=== PATIENT | female | born 1995 | race Caucasian/White ===

== ENCOUNTER 2018-04-23 01:51 | Emergency (ER) | payer MEDICAID ==
[~2018-04-23] VITALS: Ht 160 cm; Wt 50.0 kg
[2018-04-23 02:34] LABS: BASOPHILS % (AUTO) 0.4 % (0-1); EOSINOPHILS % (AUTO) 0.7 % (0-6); HEMATOCRIT 36.1 % (35.0-45.0); HEMOGLOBIN 11.8 g/dl (12.0-16.0); LYMPHOCYTES # (AUTO) 1.7 X10'3 (1.1-4.8); LYMPHOCYTES % (AUTO) 28.9 % (21-51); MEAN CORPUSCULAR HEMOGLOBIN 27.3 PG (27.0-31.0); MEAN CORPUSCULAR HGB CONC 32.8 % (33.0-36.5); MEAN CORPUSCULAR VOLUME 83.2 FL (78-98); MEAN PLATELET VOLUME 8.5 FL (7.4-10.4); MONOCYTES # (AUTO) 0.5 X10'3 (0-0.9); MONOCYTES % (AUTO) 8.6 % (2-12); NEUTROPHILS # (AUTO) 3.6 X10'3 (1.8-7.7); NEUTROPHILS % (AUTO) 61.4 % (42-75); PLATELET COUNT 358 X10'3 (140-440); RED BLOOD COUNT 4.34 X10'6 (4.20-5.60); RED CELL DISTRIBUTION WIDTH 13.5 % (11.5-14.5); WHITE BLOOD COUNT 5.8 X10'3 (4.5-11.0)
[2018-04-23 02:43] LABS: ANION GAP 13 (8-16); BILIRUBIN,TOTAL 0.2 MG/DL (0.1-1.0); BLOOD UREA NITROGEN 10 MG/DL (7-18); BUN/CREATININE RATIO 12.5 (6.6-38.0); CALCIUM 8.5 MG/DL (8.5-10.1); CHLORIDE 105 MMOL/L (99-107); GLUCOSE 102 MG/DL (70-104); POTASSIUM 3.5 MMOL/L (3.5-5.1); SODIUM 143 MMOL/L (135-145); TOTAL CARBON DIOXIDE 25.3 MMOL/L (24-32); TOTAL PROTEIN 7.9 G/DL (6.4-8.2); eGFR 88 ML/MIN
[2018-04-23 02:44] LABS: ALANINE AMINOTRANSFERASE 59 U/L (12-78); ALBUMIN/GLOBULIN RATIO 0.3 (1.1-1.5); ALKALINE PHOSPHATASE 49 IU/L (46-116); ASPARTATE AMINO TRANSFERASE 26 U/L (10-37)
[2018-04-23 02:55] LABS: ETHANOL 0.159 GM/DL (0.0-0.010)
[2018-04-23 03:00] LABS: ACETAMINOPHEN < 2.0 UG/ML (10-30)
--- NOTE | 2018-04-23 03:20 | NUR ---
Spoke ER MD Baeza no need to consult poison consult R/T to briseida cooper mir of toxic ingestion.
--- NOTE | 2018-04-23 05:03 | NUR ---
Called to SOC to initiate SOC consult.
--- NOTE | 2018-04-23 05:43 | NUR ---
Call back from SOC. Stated patient should be placed on inpatient psych and continue exisiting medication with the exception of ativan.
[2018-04-23] MEDS ORDERED: ESCI5TAB PO (08:17)
[2018-04-23] MEDS ORDERED: ARIP2TAB37 PO (08:17)
--- NOTE | 2018-04-23 08:48 | NUR ---
[facility] CALLED REQUESTING OTHER HALF OF TOX SCREEN. [facility] INFORMED IT IS STILL PENDING.
[2018-04-23 08:55] LABS: URINE HCG NEGATIVE (NEG)
[2018-04-23 09:01] LABS: URINE AMPHETAMINE SCREEN NEGATIVE (Neg); URINE BARBITUATE SCREEN NEGATIVE (Neg); URINE BENZODIAZEPINES SCREEN NEGATIVE (Neg); URINE CANNABINOID SCREEN NEGATIVE (Neg); URINE COCAINE SCREEN NEGATIVE (Neg); URINE METHADONE SCREEN NEGATIVE (Neg); URINE OPIATE SCREEN NEGATIVE (Neg); URINE PHENCYCLIDINE SCREEN NEGATIVE (Neg)
[2018-04-23] MEDS ORDERED: nicotine 21mg patch - 24 hr TD ONE (09:05)
--- NOTE | 2018-04-23 09:10 | NUR ---
parents arrived, visiting with patient in room.
[2018-04-23] MEDS ORDERED: CITALOpram 10mg tablet PO ONE (09:30)
--- NOTE | 2018-04-23 12:16 | NUR ---
called report to rené in overflow and patient being moved
--- NOTE | 2018-04-23 13:02 | NUR ---
Patient sitting in bed eating, shes wrapped in blankets, a man and women visitor at bedside.
--- NOTE | 2018-04-23 13:44 | NUR ---
Patient mother with patient, curious to when Behavioral Health will eval patient.
[2018-04-23] MEDS ORDERED: ibuprofen 200mg tablet PO ONE (14:10)
--- NOTE | 2018-04-23 17:06 | NUR ---
Patient complaining of headache, and neck ache, stated "she fell down a flight of stairs" is aware.
--- NOTE | 2018-04-23 19:31 | NUR ---
Patient is mid Fowlers in bed. Oriented X4, warm and dry, she has good color. Patient states she overdosed on ativan after going on a drinking binge. "I meant to take one ativan but the bottle poured them all out in my hand, so I said fuck it, I took them all." At this time this patient denies S/I or H/I. She denies hallucinations. Patient ate a full meal. Patient states she has an IUD implanted, she also uses a Xulan patch but this is the off week. Patient states a Bipolar and depression history along with a post depression history. She has partial custody of a 4 1/2 year old boy. Q15 minute rounding will be continued for patient safety
--- NOTE | 2018-04-23 22:01 | NUR ---
This patient has been interviewed by the Behavioral Health tapper shank for probable admit to their unit. The plan is to move here later this evening. At this time patient is mid Fowlers in bed and sleeping.
--- NOTE | 2018-04-23 22:58 | NUR ---
Patient was asleep until 2240 hrs. I awoke this patient to advised her of her transfer upstairs to the Behavioral Health Unit. Patient transfered by wheelchair with tech. Paperwork sent with stickers from admitting and wrist band too. 5150 original paperwork was sent too.
[2018-04-23 23:01] VITALS: BP 83/53
[2018-04-24] MEDS ORDERED: CITALOpram 10mg tablet PO SCH (08:00)
[2018-04-27] MEDS ORDERED: PROP10TA10 PO (15:22)
[2018-04-27] MEDS ORDERED: CITA20TA19 PO (15:22)
[2018-04-27] MEDS ORDERED: NICO-687 TD (15:22)
[2018-04-27] MEDS ORDERED: NALT50TA PO (15:22)
== END 2018-04-23 23:06 ==
LOC: ER 01:51
DX: R45.851 Suicidal ideations (principal); F31.9 Bipolar disorder, unspecified; F17.200 Nicotine dependence, unspecified, uncomplicated; F12.90 Cannabis use, unspecified, uncomplicated; Z88.1 Allergy status to other antibiotic agents
CPT/HCPCS: 36415; 70450; 72125; 80053; 80305; 80320; 80329; 81025; 84443; 85025; 99285

== ENCOUNTER 2018-04-23 18:30 | Inpatient (IN) | payer MEDICAID | END 2018-04-27 19:00 | disposition home or self-care (01) | LOC: ED HOLD 18:30 → ADULT MH 22:05 | DX: R45.851 Suicidal ideations (principal) ==

== ENCOUNTER 2020-03-30 14:16 | Emergency (ER) | payer MEDICAID ==
[~2020-03-30] VITALS: Ht 160 cm; Wt 52.3 kg
[~2020-03-30 14:16] MED LIST: ARIP2TAB37 PO; CITA20TA19 PO; NALT50TA PO; NICO-687 TD; PROP10TA10 PO
[2020-03-30 15:09] LABS: CLARITY,URINE SLIGHTLY CLOUDY (Clear); COLOR,URINE YELLOW (Yellow); GLUCOSE, URINE NEGATIVE (Neg); KETONES,URINE NEGATIVE (Neg); LEUKOCYTE ESTERASE ,URINE TRACE (Neg); NITRITES, URINE NEGATIVE (Neg); OCCULT BLOOD,URINE NEGATIVE (Neg); PROTEIN,URINE NEGATIVE (Neg)
[2020-03-30 15:22] LABS: UA COLLECTION TYPE CLN CATCH MIDSTREAM
[2020-03-30 15:23] LABS: BACTERIA,URINE FEW /HPF (Neg); MUCUS STRANDS MANY /LPF (Neg); RBC,URINE NONE SEEN /HPF (0-2); SQUAMOUS EPITHELIAL CELL,UR MODERATE /LPF (FEW); WBC,URINE 0-4 /HPF (0-4)
[2020-03-30 15:24] LABS: URINE AMPHETAMINE SCREEN NEGATIVE (Neg); URINE BARBITUATE SCREEN NEGATIVE (Neg); URINE BENZODIAZEPINES SCREEN NEGATIVE (Neg); URINE CANNABINOID SCREEN NEGATIVE (Neg); URINE COCAINE SCREEN NEGATIVE (Neg); URINE METHADONE SCREEN NEGATIVE (Neg); URINE OPIATE SCREEN NEGATIVE (Neg); URINE PHENCYCLIDINE SCREEN NEGATIVE (Neg)
[2020-03-30 15:27] LABS: URINE HCG NEGATIVE (NEG)
[2020-03-30 15:38] LABS: BASOPHILS % (AUTO) 0.3 % (0-1); EOSINOPHILS % (AUTO) 0.2 % (0-6); HEMATOCRIT 37.1 % (35.0-45.0); HEMOGLOBIN 12.8 g/dl (12.0-16.0); LYMPHOCYTES # (AUTO) 0.9 X10'3 (1.1-4.8); LYMPHOCYTES % (AUTO) 14.5 % (21-51); MEAN CORPUSCULAR HEMOGLOBIN 31.7 PG (27.0-31.0); MEAN CORPUSCULAR HGB CONC 34.6 g/dL (33.0-36.5); MEAN CORPUSCULAR VOLUME 91.7 FL (78-98); MEAN PLATELET VOLUME 8.1 FL (7.4-10.4); MONOCYTES # (AUTO) 0.4 X10'3 (0-0.9); MONOCYTES % (AUTO) 6.6 % (2-12); NEUTROPHILS # (AUTO) 4.7 X10'3 (1.8-7.7); NEUTROPHILS % (AUTO) 78.4 % (42-75); PLATELET COUNT 258 X10'3 (140-440); RED BLOOD COUNT 4.04 X10'6 (4.20-5.60); RED CELL DISTRIBUTION WIDTH 13.7 % (11.5-14.5)
[2020-03-30 15:56] LABS: ALANINE AMINOTRANSFERASE 18 U/L (12-78); ALBUMIN/GLOBULIN RATIO 1.1 (1.1-1.5); ALKALINE PHOSPHATASE 74 IU/L (46-116); ANION GAP 9 (8-16); ASPARTATE AMINO TRANSFERASE 18 U/L (10-37); BILIRUBIN,TOTAL 0.6 MG/DL (0.1-1.0); BLOOD UREA NITROGEN 11 MG/DL (7-18); BUN/CREATININE RATIO 14.7 (6.6-38.0); CHLORIDE 104 MMOL/L (99-107); CREATININE 0.75 MG/DL (0.40-0.90); GLUCOSE 115 MG/DL (70-104); POTASSIUM 3.5 MMOL/L (3.5-5.1); SODIUM 141 MMOL/L (135-145); TOTAL CARBON DIOXIDE 28.5 MMOL/L (24-32); TOTAL PROTEIN 7.8 G/DL (6.4-8.2); eGFR > 90 ML/MIN
[2020-03-30 16:08] LABS: ETHANOL < 0.010 GM/DL (0.0-0.010)
--- NOTE | 2020-03-30 17:10 | NUR ---
packet faxed to [facility]
--- NOTE | 2020-03-30 18:15 | NUR ---
PATIENT HAS BEEN DRINKING HEAVILY IN THE PAST WEEK AND A HALF SINCE HER BOYFRIEND BROKE UP WITH HER: 12 PACK OF BEER DAILY SHE LIVES WITH HER FATHER AND HER 6 YO SON
--- NOTE | 2020-03-30 19:02 | NUR ---
HAZEL GABRIEL TO TAKE PATIENT'S HOME MEDICATIONS TO PHARMACY
--- NOTE | 2020-03-30 19:17 | NUR ---
pt packet faxed to [facility]
[2020-03-30] MEDS ORDERED: [UNRECOGNIZED DRUG - CODE] PO (19:57)
[2020-03-30] MEDS ORDERED: SERT50TA10 PO (19:57)
[2020-03-30] MEDS ORDERED: HYDR50TA65 PO (19:57)
[2020-03-30] MEDS ORDERED: PRAZ1CAP5 PO (19:57)
[2020-03-30] MEDS ORDERED: LORA2TAB96 PO (19:57)
[2020-03-30] MEDS ORDERED: ONDA-103 PO (19:57)
[2020-03-30] MEDS ORDERED: simethicone 80mg chew tab PO PRN (20:15)
[2020-03-30] MEDS ORDERED: ondansetron 4mg rapidly disintigrating tab PO PRN (20:15)
--- NOTE | 2020-03-30 20:41 | NUR ---
JCARLOSH HERE AND UPDATYED TO WRITE 0630 MH HOLD
[2020-03-30] MEDS ORDERED: hydrOXYzine 25 MG tablet PO SCH (21:00)
[2020-03-30] MEDS ORDERED: sertraline 50mg tablet PO SCH (21:00)
[2020-03-30] MEDS ORDERED: prazosin 1mg capsule PO SCH (21:00)
--- NOTE | 2020-03-30 21:40 | NUR ---
AWAKE READING A BOOK, TEARY EYED. DID NOT WANT TO FURTHER TALK ABOUT HER FEELINGS SHE STATED
--- NOTE | 2020-03-30 23:40 | NUR ---
EYES CLOSED RESTING ON LEFT SIDE, NO SIGNS OF DISTRESS.
--- NOTE | 2020-03-31 00:49 | NUR ---
SLEEPING ON RIGHT SIDE NO SIGNS OF DISTRESS
--- NOTE | 2020-03-31 01:50 | NUR ---
LYING SUPIN, EYES CLOSED EVEN UNLABORED RESPIRATIONS.
--- NOTE | 2020-03-31 02:50 | NUR ---
no signs of distress, eyes closed.
--- NOTE | 2020-03-31 03:55 | NUR ---
sleeping facial muslces relaxed no sign of distress. Respirations even and unlabored
--- NOTE | 2020-03-31 05:37 | NUR ---
uneventful night. VSS, no complaints.
[2020-03-31 05:38] VITALS: BP 105/68
--- NOTE | 2020-03-31 06:29 | NUR ---
patient received on bed asleep.We will monitor.
[2020-03-31] MEDS ORDERED: LORazepam 1 MG tablet PO SCH (08:00)
--- NOTE | 2020-03-31 08:01 | NUR ---
[facility] director called/sarita,requesting to do rapid covid before they accept patient-Dr. Powell made aware to order.
--- NOTE | 2020-03-31 09:00 | NUR ---
collected covid swab.
--- NOTE | 2020-03-31 09:29 | NUR ---
asleep on right side at this time.We will monitor.
--- NOTE | 2020-03-31 10:00 | NUR ---
patient on right side asleep.We will monitor.
--- NOTE | 2020-03-31 10:15 | NUR ---
Assumed care of the patient. Pt is resting with eyes closed and even and unlabored respirations.
--- NOTE | 2020-03-31 10:46 | NUR ---
patient accepted at [facility] results are in - negative. results are faxed to [facility]. [facility] office will call back with pick-up. Accepting is [facility] at
--- NOTE | 2020-03-31 11:02 | NUR ---
[facility] office phoned to inform staff that the patient has been accepted at [facility] in [place] and the [facility] staff member will be here to drive the patient at approximately 1315.
--- NOTE | 2020-03-31 12:02 | NUR ---
Pt has no change in condition, in line of sight of the nurse's station. Continuing to monitor.
--- NOTE | 2020-03-31 13:04 | NUR ---
Pt's lunch tray placed at bedside. Pt is currently sleeping with even and unlabored respirations.
--- NOTE | 2020-03-31 13:24 | NUR ---
Fernandez from [facility] is here to transport the patient to [facility] in [place] for admission.
== END 2020-03-31 13:40 ==
LOC: ER 14:16
DX: R45.851 Suicidal ideations (principal); F31.9 Bipolar disorder, unspecified; F12.10 Cannabis abuse, uncomplicated; Z20.828 Contact with and (suspected) exposure to other viral communicable diseases; Z88.1 Allergy status to other antibiotic agents; Z88.8 Allergy status to other drugs, medicaments and biological substances
CPT/HCPCS: 36415; 80053; 80305; 80320; 81001; 81025; 84443; 85025; 87635; 99285; C9803; Q0177